=== PATIENT | male | born 1970 | race Caucasian/White ===

== ENCOUNTER → 2017-03-19 | Outpatient (CLI) | payer BC | LOC: GMAH 16:57 | PROVIDERS: ATTEND Family Medicine | DX: R53.83 Other fatigue (principal) ==

== ENCOUNTER → 2019-05-12 | Outpatient (CLI) | payer OTHER ==
--- NOTE | 2019-05-13 09:21 | RAD ---
EXAM DESCRIPTION: Abdomen Flat Upright CLINICAL HISTORY: 49 years Male, RUQ ABD PAIN COMPARISON: None. TECHNIQUE: Supine and erect radiographs of the abdomen obtained. FINDINGS: Multiple air distended bowel loops are identified with no evidence of bowel obstruction. Moderate amount of fecal material is identified. No evidence of air-fluid levels. No abnormal calcifications are noted. IMPESSION: 1. Nonobstructive bowel gas pattern. 2. Constipation Electronically signed by: Matthew Barth MD 05/13/2019 9:20 AM CDT
== END ==
LOC: LAB.O 17:37
PROVIDERS: ATTEND Surgery
DX: K59.00 Constipation, unspecified (principal)

== ENCOUNTER → 2019-10-26 | Outpatient (CLI) | payer OTHER ==
--- NOTE | 2019-10-26 21:07 | US ---
EXAM DESCRIPTION: Venous,Lower Extremity RT (accession [id number]), Venous,Lower Extremity LT (accession [id number]): Ultrasound. CLINICAL HISTORY: VARICOSE VEINS OF RIGHT LOWER EXTREMITY WITH ULCER COMPARISON: None Available. TECHNIQUE: Two -dimensional and doppler sonographic evaluation of the deep venous system of the bilateral lower extremities. FINDINGS: Doppler evaluation shows normal color flow and normal phasicity and augmentation of the bilateral common femoral veins, junctions with the bilateral proximal saphenous veins, femoral veins, popliteal veins, greater saphenous veins,, peroneal and posterior tibial veins. These veins showed normal occlusion with transducer pressure. Two-dimensional survey showed no echogenic clot within these veins. On the lateral aspect of the knees bilaterally, tortuous dilated subcutaneous venous structures are visualized with color Doppler flow. The veins are compressible with the transducer. IMPRESSION: Duplex ultrasound evaluation of the bilateral lower extremity deep venous systems showing no evidence of thrombosis. Bilateral subcutaneous venous varicosities on the lateral aspects of the knees. No thrombosis. Electronically signed by: Juan Torres MD 10/26/2019 9:06 PM P[employer]ER
--- NOTE | 2019-10-26 21:07 | US ---
EXAM DESCRIPTION: Venous,Lower Extremity RT (accession [id number]), Venous,Lower Extremity LT (accession [id number]): Ultrasound. CLINICAL HISTORY: VARICOSE VEINS OF RIGHT LOWER EXTREMITY WITH ULCER COMPARISON: None Available. TECHNIQUE: Two -dimensional and doppler sonographic evaluation of the deep venous system of the bilateral lower extremities. FINDINGS: Doppler evaluation shows normal color flow and normal phasicity and augmentation of the bilateral common femoral veins, junctions with the bilateral proximal saphenous veins, femoral veins, popliteal veins, greater saphenous veins,, peroneal and posterior tibial veins. These veins showed normal occlusion with transducer pressure. Two-dimensional survey showed no echogenic clot within these veins. On the lateral aspect of the knees bilaterally, tortuous dilated subcutaneous venous structures are visualized with color Doppler flow. The veins are compressible with the transducer. IMPRESSION: Duplex ultrasound evaluation of the bilateral lower extremity deep venous systems showing no evidence of thrombosis. Bilateral subcutaneous venous varicosities on the lateral aspects of the knees. No thrombosis. Electronically signed by: Juan Torres MD 10/26/2019 9:06 PM LINE LOCATOR
== END ==
LOC: US 13:33
PROVIDERS: ATTEND Family Medicine
DX: I83.028 Varicose veins of left lower extremity with ulcer other part of lower leg (principal)

== ENCOUNTER 2020-01-12 05:45 | Day surgery (SDC) | payer OTHER ==
[2020-01-12] MEDS ORDERED: LACTATED RINGERS 1,000 ML ONE (06:50)
[2020-01-12] MEDS ORDERED: LIDOCAINE 1% 10 ML VIAL INJ ONE (07:00)
[2020-01-12] MEDS ORDERED: PROPOFOL 200 MG/20 ML VIAL IV ONE (07:00)
[2020-01-12] MEDS ORDERED: KETAMINE HCL 100 MG/ML VIAL ONE (10:58)
--- NOTE | 2020-01-12 12:02 | OP ---
DATE OF PROCEDURE: 01/12/20 PREOPERATIVE DIAGNOSIS: 1. Screening. POSTOPERATIVE DIAGNOSIS: 1. Normal colon. PROCEDURE: 1. Colonoscopy. SURGEON: Jayjay Peralta MD FINDINGS: Normal colon. COMPLICATIONS: None. PROCEDURE: General anesthesia was induced in the lateral position. Digital rectal exam was normal. The colonoscope was then passed and routinely taken all the way to the cecum where the appendiceal orifice and ileocecal valve were identified. The terminal ileum was not intubated. Upon withdrawal, there was an adequate prep carefully examining all the folds. No polyps were seen. The colon was aspirated upon withdrawal as well. The patient tolerated the procedure and was taken to Recovery to be discharged. #[id number] MTDD
[2020-01-12 13:49] VITALS: TEMP 97
[2020-01-12 13:51] VITALS: BP 116/96; O2SAT 99
== END 2020-01-12 12:35 | disposition home or self-care (01) ==
LOC: AMB 05:45
PROVIDERS: ATTEND Surgery
DX: Z12.11 Encounter for screening for malignant neoplasm of colon (principal); I10 Essential (primary) hypertension; E78.00 Pure hypercholesterolemia, unspecified; K59.00 Constipation, unspecified; Z80.0 Family history of malignant neoplasm of digestive organs; Z79.899 Other long term (current) drug therapy
CPT/HCPCS: 00812; 45378; J3490; J7120